=== PATIENT | male | born 1960 | race Asian ===

== ENCOUNTER 2018-09-05 13:33 | Outpatient (CLI) | payer OTHER | END 2018-09-05 23:14 | disposition home or self-care (01) | LOC: RAD 13:33 | DX: R06.02 Shortness of breath (principal) ==

== ENCOUNTER 2019-12-09 14:16 | Outpatient (CLI) | payer OTHER | END 2019-12-09 22:34 | disposition home or self-care (01) | LOC: RAD 14:16 | DX: M25.562 Pain in left knee (principal); M79.605 Pain in left leg ==

== ENCOUNTER 2020-05-06 21:27 | Emergency (ER) | payer OTHER ==
[~2020-05-06] VITALS: Ht 149.9 cm; Wt 79.8 kg
[2020-05-06 21:55] VITALS: BP 174/98; TEMP 98.5
== END 2020-05-06 23:44 | disposition home or self-care (01) ==
LOC: ED 21:27
DX: S80.11XA Contusion of right lower leg, initial encounter (principal); X58.XXXA Exposure to other specified factors, initial encounter; Y92.89 Other specified places as the place of occurrence of the external cause
CPT/HCPCS: 99282

== ENCOUNTER 2020-05-30 08:26 | Outpatient (CLI) | payer OTHER | END 2020-05-30 22:56 | disposition home or self-care (01) | LOC: RAD 08:26 | DX: I10 Essential (primary) hypertension (principal); R01.1 Cardiac murmur, unspecified | CPT/HCPCS: 93005 ==

== ENCOUNTER 2023-02-03 17:53 | Emergency (ER) | payer OTHER ==
[~2023-02-03] VITALS: Ht 149.9 cm; Wt 78.0 kg
[2023-02-03 17:56] VITALS: TEMP 98.6
[2023-02-03 18:42] LABS: PLATELET COUNT 253 K/uL (142-355)
[2023-02-03 18:59] LABS: POTASSIUM 3.4 mmol/L (3.6-5.2)
[2023-02-03 20:13] VITALS: BP 135/81
== END 2023-02-03 19:13 | disposition home or self-care (01) ==
LOC: ED 17:53
PROVIDERS: Family Medicine
DX: M79.642 Pain in left hand (principal); M10.9 Gout, unspecified
CPT/HCPCS: 36415; 80053; 84550; 85027; 86140; 96372; 99283; J1885; J2930